=== PATIENT | female | born 1980 | race Hispanic/Latino ===

== ENCOUNTER 2018-12-02 13:19 | Outpatient (CLI) | payer BC ==
--- NOTE | 2018-12-02 15:27 | RAD ---
TWO VIEW CHEST: Comparison: 05-04-05 Indication: Cough. FINDINGS: Mild elevation of the right hemidiaphragm is seen. There is no lobar consolidation, effusion, or pneu mothorax. Cardiac silhouette is within normal limits in size. IMPRESSION: No focal consolidation. POS: [facility]
== END 2018-12-02 13:20 | disposition home or self-care (01) ==
LOC: SCSRAD 13:19
PROVIDERS: ATTEND Family Medicine
DX: J20.9 Acute bronchitis, unspecified (principal)
CPT/HCPCS: 71046